=== PATIENT | female | born 1980 | race Caucasian/White ===

== ENCOUNTER 2019-02-08 05:59 | Emergency (ER) | payer OTHER ==
[2019-02-08 06:18] VITALS: BP 134/92; TEMP 97; BMI 35.3
--- NOTE | 2019-02-08 06:42 | ED.PDOC ---
General ED Provider: Dr. JMAE LAROSE Chief Complaint: Vaginal Discharge/Swelling Stated Complaint: 39 y old cauc.female started eperiencing introital vaginal and vulvar preuritus.Started OTC clotrimazole cream,than from her doctor nystatin /triamcinolone cream and Fluconazole tabs.Took 2 of 3,=,She was not examined, her meds were prescribed over the phone.None of those treatments helped. Todays examination is showing:External vulvar presumed herpetic skin changes partialy scratched.Introital vulvar mucosal damage with necrotic. epithelium.Vaginal speculum exam is showing a purulen drainage from the. endocervical canal with mucosal ulcerations surrounding the opening of the canal,Snmall amount of pus draining into the vagina and out. Cultures collected'bacterial,chlamydia,wet mount and Zank.GNC. Patient instructed to see her collet driller immediately. 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 Abdominal; and pelvic exam not yielding additional signs or symptoms. Treatment started'Zovirax 8oo mg qid x 7 days,Zovirax oitment apply bid-tid to vulvar area.Start clindamycin 300 mg tid x 7 days for coinfection. Follow with culture results ond see [facility] immediately. Time Seen by Physician: 06:15 Mode of Arrival: Walk-In Information Source: Patient Exam Limitations: No limitations Primary Care Provider: FLORENCE DOYLE Nursing and Triage Documentation Reviewed and Agree: Yes Does patient meet sepsis criteria?: No System Inflammatory Response Syndrome: Not Applicable Sepsis Protocol: For patient's 13 years and over: Temp is 96.8 and below OR 101 and greater Pulse >90 BPM Resp >20/minute Acutely Altered Mental Status Are patient's symptoms suggestive of a new infection, such as: -Pneumonia -Skin, Soft Tissue -Endocarditis -UTI -Bone, Joint Infection -Implantable Device -Acute Abdominal Infection -Wound Infection -Meningitis -Blood Stream Catheter Infection -Unknown [employer] Complaint Exam - Vaginal Bleeding Complaint/Exam Onset/Duration: 5 days per pt report Symptoms Are: Still present Timing: Constant Initial Severity: Moderate Current Severity: Moderate # of Pads Per Hour: 0 (NO BLEED BUT PUS) Aggravating: Reports: Activity Alleviating: Reports: Rest Ectopic Risk Factors: Reports: None Spontaneous AB Risk Factors: Reports: None Placental Abruption Risk Factors: Reports: None Patient Rh Status: Unknown Abdominal Findings: Present: None Vulva Exam: Present: Labial lesions, Labial erythema, Labial swelling, Laceration Vaginal Exam: Present: Discharge Cervical Exam: Present: Discharge, Tenderness Uterine Exam: Nontender Adnexal Exam: Present: Normal Findings Differential Diagnoses: Endometritis, Neoplasm, Vaginitis Review of Systems - Review Of Systems Constitutional: Reports: No symptoms Eyes: Reports: No symptoms Ears, Nose, Mouth, Throat: Reports: No symptoms Respiratory: Reports: No symptoms Cardiac: Reports: No symptoms GI: Reports: No symptoms : Reports: Burning, Discharge, Pain Musculoskeletal: Reports: No symptoms Skin: Reports: Lesions, Rash Neurological: Reports: No symptoms Endocrine: Reports: No symptoms Hematologic/Lymphatic: Reports: No symptoms All Other Systems: Reviewed and Negative Past Medical History - Past Medical History Previously Healthy: Yes Endocrine: Reports: None Cardiovascular: Reports: None Respiratory: Reports: None Hematological: Reports: None Gastrointestinal: Reports: None Genitourinary: Reports: None Neuro/Psych: Reports: None Musculoskeletal: Reports: None Cancer: Reports: None Last Menstrual Period: 01/14/19 - Surgical History General Surgical History: Reports: Tubal ligation - Family History Family History: Reports: None - Social History Smoking Status: Former smoker Hx Substance Use: No Alcohol Screening: Occasionally - Immunizations Tetanus Shot up to Date: Yes Physical Exam - Physical Exam Appearance: Well-appearing Ill-appearing: None Pain Distress: None Eyes: KATY, EOMI, Conjunctiva clear ENT: Ears normal, Nose normal, Oropharynx normal Respiratory: Airway patent, Breath sounds clear, Breath sounds equal Cardiovascular: RRR, Pulses normal, No rub, No murmur GI/: Soft, Nontender, No masses, Bowel sounds normal, No Organomegaly Musculoskeletal: Normal strength, ROM intact, No edema, No calf tenderness Skin: Warm, Dry, Normal color Neurological: Sensation intact, Motor intact, Reflexes intact, Cranial nerves intact, Alert, Oriented Psychiatric: Anxious Critical Care Note - Critical Care Note Total Time (mins): 0 Course - Course Vital Signs: Temp Pulse Resp BP Pulse Ox 02/08/19 06:02 97 F L 98 H 20 134/92 H 98 Departure - Departure Time of Disposition: 07:16 Disposition: HOME SELF-CARE Discharge Problem: Cervicitis and endocervicitis Instructions: Genital Herpes Simplex (ED) Condition: Good Pt referred to PMD for follow-up: Yes (SEE [facility] IMMEDIATELY) IPMP verified?: No Additional Instructions: zOVIRAX 800MG QID X 7 DAYS.cLINDAMYCIN 300MG QID X 7 DAYSpo.Zovirax ointment topical bid as directed. Allergies/Adverse Reactions: Allergies No Known Allergies Allergy (Unverified 02/08/19 06:17) Home Medications: Ambulatory Orders Levothyroxine Sodium [Synthroid] 75 mcg PO QDAC 02/08/19 Phentermine HCl 37.5 mg PO DAILY 02/08/19 Disposition Discussed With: Patient
[2019-02-08 07:54] LABS: URINE PREGNANCY TEST NEGATIVE (NEGATIVE)
== END 2019-02-08 08:12 | disposition home or self-care (01) ==
LOC: ED 05:59
DX: N72 Inflammatory disease of cervix uteri (principal)
CPT/HCPCS: 36415; 81001; 81025; 85025; 87070; 87210; 87252; 99283